=== PATIENT | male | born 1975 | race Two or more races ===

== ENCOUNTER 2024-11-08 10:27 | Inpatient (IN) | payer OTHER ==
[~2024-11-08] VITALS: Ht 172.7 cm; Wt 100.0 kg
--- NOTE | 2024-11-08 10:39 | ECG ---
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
--- NOTE | 2024-11-08 10:41 | ED.PDOC ---
HPI Comments 49 y.o male with PMHx of HTN, TIA, [place], and kidney stones, presents to the ED via EMS for a chief complaint of substernal chest pain radiating to his left arm associated with lightheadedness and generalized weakness that presented 45 minutes ago. Patient describes pain as sharp, constant, rating a 10/10 on the pain scale. EMS reports patient took 4 baby ASA prior to their arrival and administrated 2 NTG on scene, bringing pain level down to a 6/10. Patient en route complained of worsening weakness. EMS reported multiple blood pressure readings that were high such as 202/118, 185/113, and 176/106. Patient denies any nausea, vomiting, abdominal pain, SOB, fever, chills, back pain. He denies any substance or tobacco use. Time Seen by MD: 10:32 Reviewed Notes: Nurses Notes, Subway Operator Notes, Medications, Allergies Allergies: Coded Allergies: NO KNOWN ALLERGIES (Unverified , 11/08/24) Information Source: Patient, Emergency Med Personnel Mode of Arrival: EMS Severity: Moderate Timing: Minutes (45) Duration: Since onset Prehospital treatment: 12 Lead EKG, Accucheck (145), Blacking Wheel Tender, NTG (x2 ) Location: Substernal Radiation: Arm (L) Quality: Sharp Onset: At Rest Cardiac Risk Factors: HTN PE Risk Factors: None History of: Similar pain in past, CA Modifying Factors: Nothing Associated Signs and Symptoms: Other Past Medical History PAST MEDICAL HISTORY: HTN, Kidney Stones, [place], TIA Surgical History (Other): Kdiney stones removal via lithrotripsy and stent placement Family History Family History: Family hx of DM, Family hx of Cancer, Family hx of heart carla, Family hx of HTN Social History Smoker: Non-Smoker Alcohol: Occasionally Drugs: Denies Drug Use Lives In: Home Constitutional: denies: chills, diaphoresis, fatigue, fever, malaise, sweats, weakness, others EENTM: denies: blurred vision, double vision, ear bleeding, ear discharge, ear drainage, ear pain, ear ringing, eye pain, eye redness, hearing loss, mouth pain, mouth swelling, nasal discharge, nose bleeding, nose congestion, nose pain, photophobia, tearing, throat pain, throat swelling, voice changes, others Respiratory: denies: cough, hemoptysis, orthopnea, SOB at rest, shortness of breath, SOB with excertion, stridor, wheezing, others Cardiovascular: reports: chest pain, left arm pain; denies: dizzy spells, diaphoresis, Dyspnea on exertion, edema, irregular heart beat, lightheadedness, palpitations, PND, syncope, others Gastrointestinal: denies: abdomen distended, abdominal pain, blood streaked bowels, constipated, diarrhea, dysphagia, difficulty swallowing, hematemesis, me anna, nausea, poor appetite, poor fluid intake, rectal bleeding, rectal pain, vomiting, others Genitourinary: denies: burning, dysuria, flank pain, frequency, hematuria, incontinence, penile discharge, penile sore, pain, testicle pain, testicle swelling, urgency, others Neurological: denies: dizziness, fainting, headache, left sided numbness, left sided weakness, numbness, paresthesia, pre-existing deficit, right sided numbness, right sided weakness, seizure, speech problems, tingling, tremors, weakness, others Musculoskeletal: denies: back pain, gout, joint pain, joint swelling, muscle pain, muscle stiffness, neck pain, others Integumetry: denies: bruises, change in color, change in hair/nails, dryness, laceration, lesions, lumps, rash, wounds, others Allergic/Immunocompromised: denies: Difficulty Healing, Frequent Infections, Hives, Itching, others Hematologic/Lymphatic: denies: anemia, blood clots, easy bleeding, easy bruising, swollen glands, others Endocrine: denies: excessive hunger, excessive sweating, excessive thirst, excessive urination, flushing, intolerance to cold, intolerance to heat, unexplained weight gain, unexplained weight loss, others Psychiatric: denies: anxiety, bipolar disorder, depression, hopeless, panic disorder, schizophrenia, sleepless, suicidal, others All Other Systems: Reviewed and Negative Physical Exam General Appearance: Moderate Distress HEENT: Normal ENT Inspection, Pharynx Normal, TMs Normal Neck: Full Range of Motion, Non-Tender, Normal, Normal Inspection Respiratory: Chest Non-Tender, Lungs Clear, No Accessory Muscle Use, No Respiratory Distress, Normal Breath Sounds Cardiovascular: No Edema, No JVD, No Murmur, No Gallop, Normal Peripheral Pulses, Regular Rate/Rhythm Breast Exam: Deferred Gastrointestinal: No Organomegaly, Non Tender, No Pulsatile Mass, Normal Bowel Sounds, Soft Genitalia: Deferred Pelvic: Deferred Rectal: Deferred Extremities: No calf tenderness, Normal capillary refill, Normal inspection, Normal range of motion, Non-tender, No pedal edema Musculoskeletal : Apperance: Normal Neurologic: Alert, lead shipper II-XII nml as Tested, No Motor Deficits, Normal Affect, Normal Mood, No Sensory Deficits Cerebellar Function: Normal Reflexes: Normal Skin: Dry, Normal Color, Warm Lymphatic: No Adenopathy EKG EKG : Pulse Rate (adult): 96 [place]: Normal Cardiac Rhythm: NSR Comments ST elevation lateral Was a procedure done? Was a procedure done?: No CP Differential Dx Differential Diagnosis: N/A Differential Diagnosis: HTN Essential, HTN Accelerated Differential Diagnosis: Angina, Chest Wall Pain, Myocardial Infarction, Pericarditis, Pneumonia, Pulmonary Embolus X-Ray, Labs, Meds, VS Vital Signs Date Time Temp Pulse Resp B/P (MAP) Pulse Ox O2 Delivery O2 Flow Rate FiO2 11/08/24 11:38 93 16 169/109 11/08/24 11:30 98.2 93 16 169/109 (129) 93 98.2 11/08/24 11:30 93 16 93 Room Air* 0 21 11/08/24 11:01 94 11/08/24 10:42 92 11/08/24 10:41 96 11/08/24 10:31 96 11/08/24 10:27 98.1 111 18 176/106 (129) 98 Lab Test 11/08/24 13:08 11/08/24 10:45 Range/Units Troponin I High Sensitivity 6 6 </=54 ng/L White Blood Count 7.0 4.4-10.8 10^3/uL Red Blood Count 5.73 4.5-5.90 10^6/uL Hemoglobin 18.0 H 13.5-17.5 g/dL Hematocrit 51.9 41.0-53.0 % Mean Corpuscular Volume 90.5 80.0-100.0 fL Mean Corpuscular Hemoglobin 31.5 28.0-32.0 pg Mean Corpuscular Hemoglobin Concent 34.7 32.0-36.0 g/dL Red Cell Distribution Width 13.2 11.8-14.3 % Platelet Count 247 140-450 10^3/uL Mean Platelet Volume 7.3 6.9-10.8 fL Neutrophils (%) (Auto) 60.4 37.0-80.0 % Lymphocytes (%) (Auto) 29.9 10.0-50.0 % Monocytes (%) (Auto) 8.3 0.0-12.0 % Eosinophils (%) (Auto) 1.0 0.0-7.0 % Basophils (%) (Auto) 0.4 0.0-2.0 % Neutrophils # (Auto) 4.2 1.6-8.6 10 ^3/uL Lymphocytes # (Auto) 2.1 0.4-5.4 10 ^3/uL Monocytes # (Auto) 0.6 0-1.3 10 ^3/uL Eosinophils # (Auto) 0.1 0-0.8 10 ^3/uL Basophils # (Auto) 0 0-0.2 10 ^3/uL Nucleated Red Blood Cells 0.1 % Prothrombin Time 10.3 9.3-11.8 sec Prothrombin Time INR 0.97 0.9-1.15 Activated Partial Thromboplast Time 28.4 24.5-34.5 SEC Sodium Level 139 136-145 mmol/L Potassium Level 3.8 3.5-5.1 mmol/L Chloride Level 105 98-107 mmol/L Carbon Dioxide Level 25 20-31 mmol/L Anion Gap 9 5-15 Blood Urea Nitrogen 12 9-23 mg/dL Creatinine 0.83 0.700-1.30 mg/dL Glomerular Filtration Rate Calc 107 >90 mL/min BUN/Creatinine Ratio 14.5 10.0-20.0 Serum Glucose 112 H 74-106 mg/dL Calcium Level 9.7 8.7-10.4 mg/dL Magnesium Level 1.9 1.6-2.6 mg/dL Total Bilirubin 0.3 0.2-1.0 mg/dL Aspartate Amino Transferase (AST) 30 13-40 U/L Alanine Aminotransferase (ALT) 27 7-40 U/L Alkaline Phosphatase 165 H 46-116 U/L Total Protein 7.5 5.7-8.2 g/dL Albumin 4.6 3.2-4.8 g/dL Current Medications Medications (Trade) Dose Ordered Sig/Eula Route Start Time Stop Time Status Last Admin Morphine Sulfate 4 mg ONCE ONCE IV 11/08/24 10:45 11/08/24 10:46 DC 11/08/24 11:38 Ondansetron HCl (Zofran) 4 mg ONCE ONCE IV 11/08/24 10:45 11/08/24 10:46 DC 11/08/24 11:38 Heparin Sodium (Porcine) 4,000 units ONCE ONCE IV 11/08/24 10:45 11/08/24 10:46 DC 11/08/24 11:37 IV Hep-Lock was established. The CBC is within normal limits. The patient was started having more chest pain so we repeated another EKG which shows sinus rhythm with no ST elevation. The 2nd EKG was sent to Dr. Gruber and he stated that there was no STEMI at this time. We will continue to follow the patient's troponin levels. The patient was given heparin 4000 units IV push per Dr. Gruber to address the ongoing chest pain. The patient was already received nitroglycerin EN route. At this time, the patient was blood pressure remained somewhat elevated The patient was being given morphine 4 mg IV push for the pain and Zofran 4 mg IV push for the nausea The patient was being admitted to the hospitalist. A cardiology consult will be provided by Dr. Yasmani Gruber did come down and evaluate the patient. We did speak with [facility] and they have authorized admission on this patient The authorization #[id number] Images Reviewed?: Images reviewed and evaluated by me Time of 1ST Reevaluation: 10:40 (Spoke with Dr. Gruber at 10:40am who stated to repeat another EKG to determine possible stemi) Reevaluation 1ST: Unchanged Patient Education/Counseling: Diagnosis, Treatment, Prognosis Family Education/Counseling: No Family Present Departure 1 Departure Time of Disposition: 11:13 Impression: Primary Impression: Acute chest pain Additional Impression: Acute myocardial ischemia Disposition: 09 ADMITTED INPATIENT Admit to: [facility] Condition: Fair Critical Care Note Critical Care Time?: Yes (55 min-critical care time only) Stability Stability form required: Yes Unstable for transfer: Telemetry monitoring (Telemetry monitoring required), ED Physician Assesment (Clinical assesment) Heart Score Heart Score: Heart Score Response (Comments) Value History Highly Suspicious 2 EKG Repolarization Disturb 1 Age 45-64 1 Risk Factors >3 or Hx ASHD 2 Troponin Normal limit 0 Total 6 I personally scribed for GERARD WEBB MD ([email or web address]) on 11/08/24 at 10:41. Electronically submitted by Lana Head ([facility]). I personally scribed for GERARD WEBB MD ([email or web address]) on 11/08/24 at 10:43. Electronically submitted by Lana Head ([facility]). I personally scribed for GERARD WEBB MD ([email or web address]) on 11/08/24 at 11:17. Electronically submitted by Lana Head ([facility]). GERARD WEBB MD Nov 08, 2024 10:41
[2024-11-08 10:59] LABS: Eosinophils # (auto) 0.1 10 ^3/uL (0-0.8); Neutrophils # (auto) 4.2 10 ^3/uL (1.6-8.6); Nucleated Red Blood Cells % 0.1 %
[2024-11-08 11:00] LABS: Basophils # (auto) 0 10 ^3/uL (0-0.2)
--- NOTE | 2024-11-08 11:02 | ECG ---
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
[2024-11-08 11:03] LABS: Basophils % (auto) 0.4 % (0.0-2.0); Hematocrit 51.9 % (41.0-53.0); Lymphocytes # (auto) 2.1 10 ^3/uL (0.4-5.4); Lymphocytes % (auto) 29.9 % (10.0-50.0); Mean Corpuscular Hemoglobin 31.5 pg (28.0-32.0); Mean Corpuscular Hgb Conc. 34.7 g/dL (32.0-36.0); Mean Corpuscular Volume 90.5 fL (80.0-100.0); Monocytes # (auto) 0.6 10 ^3/uL (0-1.3); Monocytes % (auto) 8.3 % (0.0-12.0); Neutrophils % (auto) 60.4 % (37.0-80.0); Platelet Count (auto) 247 10^3/uL (140-450); Red Blood Cells 5.73 10^6/uL (4.5-5.90); Red Cell Distribution Width 13.2 % (11.8-14.3)
[2024-11-08 11:22] LABS: INR 0.97 (0.9-1.15); Partial Thromboplastin Time 28.4 SEC (24.5-34.5); Prothrombin Time 10.3 sec (9.3-11.8)
[2024-11-08 11:23] LABS: Alanine Aminotransferase 27 U/L (7-40); Albumin 4.6 g/dL (3.2-4.8); Anion Gap 9 (5-15); Aspartate Aminotransferase 30 U/L (13-40); BUN/Creatinine Ratio 14.5 (10.0-20.0); Bilirubin, Total 0.3 mg/dL (0.2-1.0); Blood Urea Nitrogen 12 mg/dL (9-23); Calcium 9.7 mg/dL (8.7-10.4); Carbon Dioxide 25 mmol/L (20-31); Chloride 105 mmol/L (98-107); Magnesium 1.9 mg/dL (1.6-2.6); Potassium 3.8 mmol/L (3.5-5.1); Sodium 139 mmol/L (136-145); Total Protein 7.5 g/dL (5.7-8.2)
[2024-11-08 11:26] LABS: Alkaline Phosphatase 165 U/L (46-116); Glucose 112 mg/dL (74-106)
[2024-11-08 11:30] VITALS: PULSE 93; RESP 16; O2SAT 93
[2024-11-08] MEDS: HEPARIN SODIUM (PORCINE) 5000 UNITS/ML 1ML VIAL IV ONE (11:37)
[2024-11-08] MEDS: MORPHINE SULFATE 4 MG/ML SYR/VIAL IV ONE ×2 (11:38→20:18)
[2024-11-08] MEDS: ONDANSETRON HCL 4 MG/2 ML VIAL IV ONE ×2 (11:38→20:19)
--- NOTE | 2024-11-08 13:20 | DVHINCON2 ---
Date Seen: Nov 08, 2024 Referring Physician Sanjuana Reason for Consultation Chest pain, EKG abnormality History of Present Illness 49-year-old male with PMH for TIA, [place], HTN and kidney stones presents to the hospital with chest pain. Patient states chest pain is left-sided, sharp and constant in nature, lasting roughly 1/2 hour radiating to left arm, associated with lightheadedness and generalized weakness. Upon EMS presentation patient was given aspirin and 2 nitro on scene which did improve pain. Upon evaluation in the ER patient noted to have significantly elevated blood pressure at 202/118. Patient states his blood pressure is usually controlled he checks it every day and is usually between 130-140. EKG reviewed and shows sinus rhythm at 96 beats per minute, nonspecific ST and T-wave abnormality. Past Medical History HTN, [place], TIA Past Surgical History Denies previous cardiac surgeries Family History Denies pertinent family cardiac history Social History Denies tobacco or illicit drug use, occasional alcohol use Allergies: Coded Allergies: NO KNOWN ALLERGIES (Unverified , 11/08/24) Review of Systems Constitutional: No: Fever, Chills, Sweats, Weakness, Malaise, Other Eyes: No: Pain, Vision change, Conjunctivae inflammation, Eyelid inflammation, Other, Redness ENT: No: Ear pain, Ear discharge, Nose pain, Nose discharge, Nose congestion, Mouth pain, Mouth swelling, Throat pain, Throat swelling, Other Respiratory: No: Cough, Dry, Shortness of breath, SOB with exertion, Wheezing, Hemoptysis, Pleuritic Pain, Sputum, Wheezing, Other Cardiovascular: ; No: Chest Pain Palpitations, Orthopnea, Paroxysmal Noc. Dyspnea, Edema, Lt Headedness, Other Gastrointestinal: No: Nausea, Vomiting, Abdominal Pain, Diarrhea, Constipation, Melena, Hematochezia, Other Genitourinary: No Dysuria, No Frequency, No Incontinence, No Hematuria, No Retention, No Other Musculoskeletal: neck pain; No: other, shoulder pain, arm pain, back pain, hand pain, leg pain, foot pain Skin: No: Rash, Lesions, Jaundice, Bruising, Other Neurological: Other (Dizziness, headache.); No: Weakness, Numbness, Incoordination, Change in speech, Confusion, Seizures Vital Signs Vital Signs Date Time Temp Pulse Resp B/P (MAP) Pulse Ox O2 Delivery O2 Flow Rate FiO2 11/08/24 11:38 93 16 169/109 11/08/24 11:30 98.2 93 98.2 11/08/24 11:30 Room Air* 0 21 Physical Exam General appearance: Patient is well-developed, well-nourished, in no acute distress. HEENT: Exam shows: Normocephalic, atraumatic, PERRLA, EOMI Neck: Supple, no bruits Chest: Equal chest excursion bilaterally. Breath sounds normal-no rales or wheezes. Heart: Rhythm: Regular rate; no murmur or gallop Abdomen: Exam shows: Soft, nontender, nondistended Musculoskeletal: No clubbing, no cyanosis, no lower extremity edema Dermatology: Skin warm, moist. Neurological: Exam shows: Alert and oriented x4, normal speech Available prior records, labs, EKG, rhythm strips reviewed and interpreted Labs/Diagnostic Data Labs Test 11/08/24 10:45 Range/Units White Blood Count 7.0 4.4-10.8 10^3/uL Red Blood Count 5.73 4.5-5.90 10^6/uL Hemoglobin 18.0 H 13.5-17.5 g/dL Hematocrit 51.9 41.0-53.0 % Mean Corpuscular Volume 90.5 80.0-100.0 fL Mean Corpuscular Hemoglobin 31.5 28.0-32.0 pg Mean Corpuscular Hemoglobin Concent 34.7 32.0-36.0 g/dL Red Cell Distribution Width 13.2 11.8-14.3 % Platelet Count 247 140-450 10^3/uL Mean Platelet Volume 7.3 6.9-10.8 fL Neutrophils (%) (Auto) 60.4 37.0-80.0 % Lymphocytes (%) (Auto) 29.9 10.0-50.0 % Monocytes (%) (Auto) 8.3 0.0-12.0 % Eosinophils (%) (Auto) 1.0 0.0-7.0 % Basophils (%) (Auto) 0.4 0.0-2.0 % Neutrophils # (Auto) 4.2 1.6-8.6 10 ^3/uL Lymphocytes # (Auto) 2.1 0.4-5.4 10 ^3/uL Monocytes # (Auto) 0.6 0-1.3 10 ^3/uL Eosinophils # (Auto) 0.1 0-0.8 10 ^3/uL Basophils # (Auto) 0 0-0.2 10 ^3/uL Nucleated Red Blood Cells 0.1 % Prothrombin Time 10.3 9.3-11.8 sec Prothrombin Time INR 0.97 0.9-1.15 Activated Partial Thromboplast Time 28.4 24.5-34.5 SEC Sodium Level 139 136-145 mmol/L Potassium Level 3.8 3.5-5.1 mmol/L Chloride Level 105 98-107 mmol/L Carbon Dioxide Level 25 20-31 mmol/L Anion Gap 9 5-15 Blood Urea Nitrogen 12 9-23 mg/dL Creatinine 0.83 0.700-1.30 mg/dL Glomerular Filtration Rate Calc 107 >90 mL/min BUN/Creatinine Ratio 14.5 10.0-20.0 Serum Glucose 112 H 74-106 mg/dL Calcium Level 9.7 8.7-10.4 mg/dL Magnesium Level 1.9 1.6-2.6 mg/dL Total Bilirubin 0.3 0.2-1.0 mg/dL Aspartate Amino Transferase (AST) 30 13-40 U/L Alanine Aminotransferase (ALT) 27 7-40 U/L Alkaline Phosphatase 165 H 46-116 U/L Troponin I High Sensitivity 6 </=54 ng/L Total Protein 7.5 5.7-8.2 g/dL Albumin 4.6 3.2-4.8 g/dL Assessment * Chest pain - troponin negative, continue trending. EKG with lateral ST and T- wave abnormality. Follow up echo. Patient undergo adenosine stress test in a.m.. NPO after midnight. * Hypertensive urgency, uncontrolled HTN - continue home regimen. Continue trending. IV p.r.n. as needed. Case Discussed with Dr Gruber. Initial troponin negative,continue trending troponins. Follow up echo. Questionable STEMI on EKG though after review noted not to be STEMI. Patient undergo adenosine stress test in a.m.. NPO after midnight. Critical care, time spent: 40 minutes This medical document was created using an electronic medical record system with voice recognition software and computerized dictation system. Although this document has been carefully reviewed, there might still be some phonetic and typographical errors. Occasional wrong-word or ``sound-alike substitutions may have occurred due to the inherent limitations of voice recognition software. These areas are purely typographical due to imperfections of the software programs and do not reflect any compromise in the patient's medical care. Please read the chart carefully and recognize, using context, where these substitutions have occurred. Thank you for allowing me to participate in the management of this patient. The treatment plan was discussed with and agreed upon by patient/family including requesting consultants and ordering of imaging/procedures. Plan discussed with: Patient NYHA Physical activity limitations: NA Date of Service: Nov 08, 2024 Billing Provider: AYLA PALOMARES Cardiology Common Codes: 28063-WXNROSA INP/OBS CARE (High), 99240-OXWDRZEI CARE 30-74 MIN AYLA PALOMARES Nov 08, 2024 13:20
--- NOTE | 2024-11-08 13:42 | DVH ---
CHEST RADIOGRAPH Indication: CP Technique: Single frontal view of the chest was obtained Comparison: None FINDINGS: Lines and Tubes: None Lungs: No focal consolidation. Pleura: No effusion. No pneumothorax. Cardiomediastinal contours: Unremarkable Bones: No acute osseous abnormality. IMPRESSION: 1. No acute cardiopulmonary disease.
--- NOTE | 2024-11-08 14:40 | ECG ---
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
[2024-11-08] MEDS: ADENOSINE 80 MG in GIVE UN-DILUTED 0 ML IV ONE (16:44)
[2024-11-08] MEDS ORDERED: ONDANSETRON HCL 4 MG/2 ML VIAL IV PRN (19:30)
[2024-11-08] MEDS ORDERED: MORPHINE SULFATE INJ 2 MG/ml SYRG IV PRN (19:30)
[2024-11-08] MEDS ORDERED: TEMAZEPAM 15 MG CAP PO PRN (19:30)
[2024-11-08 20:00] VITALS: PULSE 90; RESP 14; O2SAT 97
[2024-11-08] MEDS: METOPROLOL TARTRATE 25 MG TAB PO ONE (20:01)
[2024-11-08] MEDS: NITROGLYCERIN 0.4 MG SL TAB SL PRN (20:02)
[2024-11-08] MEDS: ATORVASTATIN 20 MG TAB PO SCH (22:00)
--- NOTE | 2024-11-08 22:03 | DVHINCON2 ---
Date Seen: Nov 08, 2024 Referring Physician Sanjuana Reason for Consultation Chest pain, EKG abnormality History of Present Illness This is a 49-year-old male with PMH of TIA, [place], HTN and kidney stones presented to the ED with chest pain. Patient states chest pain is left-sided, sharp and constant in nature, lasting roughly 1/2 hour radiating to left arm, associated with lightheadedness and generalized weakness. Upon EMS presentation patient was given aspirin and 2 nitro on scene which did improve pain. Upon evaluation in the ED patient noted to have significantly elevated blood pressure at 202/118. Patient states his blood pressure is usually controlled he checks it every day and is usually between 130-140. EKG reviewed and shows sinus rhythm at 96 beats per minute, nonspecific ST and T-wave abnormality. Chest x-ray showed NAD. Patient was admitted to the hospital. I am asked to consult on this patient. Past Medical History HTN, [place], TIA Past Surgical History Denies previous cardiac surgeries Allergies: Coded Allergies: NO KNOWN ALLERGIES (Unverified , 11/08/24) Review of Systems Constitutional: No: Fever, Chills, Sweats, Weakness, Malaise, Other Eyes: No: Pain, Vision change, Conjunctivae inflammation, Eyelid inflammation, Other, Redness ENT: No: Ear pain, Ear discharge, Nose pain, Nose discharge, Nose congestion, Mouth pain, Mouth swelling, Throat pain, Throat swelling, Other Respiratory: No: Cough, Dry, Shortness of breath, SOB with exertion, Wheezing, Hemoptysis, Pleuritic Pain, Sputum, Wheezing, Other Cardiovascular: ; No: Chest Pain Palpitations, Orthopnea, Paroxysmal Noc. Dyspnea, Edema, Lt Headedness, Other Gastrointestinal: No: Nausea, Vomiting, Abdominal Pain, Diarrhea, Constipation, Melena, Hematochezia, Other Genitourinary: No Dysuria, No Frequency, No Incontinence, No Hematuria, No Retention, No Other Musculoskeletal: neck pain; No: other, shoulder pain, arm pain, back pain, hand pain, leg pain, foot pain Skin: No: Rash, Lesions, Jaundice, Bruising, Other Neurological: Other (Dizziness, headache.); No: Weakness, Numbness, Incoordination, Change in speech, Confusion, Seizures Vital Signs Vital Signs Date Time Temp Pulse Resp B/P (MAP) Pulse Ox O2 Delivery O2 Flow Rate FiO2 11/08/24 16:30 97.8 90 16 158/106 (123) 97 97.8 11/08/24 11:30 Room Air* 0 21 Physical Exam GENERAL: Awake, alert, oriented. LUNGS: Clear. CARDIOVASCULAR: Heart sounds are good. ABDOMEN: Soft. Labs/Diagnostic Data Labs Test 11/08/24 13:08 11/08/24 10:45 Range/Units Troponin I High Sensitivity 6 </=54 ng/L White Blood Count 7.0 4.4-10.8 10^3/uL Red Blood Count 5.73 4.5-5.90 10^6/uL Hemoglobin 18.0 H 13.5-17.5 g/dL Hematocrit 51.9 41.0-53.0 % Mean Corpuscular Volume 90.5 80.0-100.0 fL Mean Corpuscular Hemoglobin 31.5 28.0-32.0 pg Mean Corpuscular Hemoglobin Concent 34.7 32.0-36.0 g/dL Red Cell Distribution Width 13.2 11.8-14.3 % Platelet Count 247 140-450 10^3/uL Mean Platelet Volume 7.3 6.9-10.8 fL Neutrophils (%) (Auto) 60.4 37.0-80.0 % Lymphocytes (%) (Auto) 29.9 10.0-50.0 % Monocytes (%) (Auto) 8.3 0.0-12.0 % Eosinophils (%) (Auto) 1.0 0.0-7.0 % Basophils (%) (Auto) 0.4 0.0-2.0 % Neutrophils # (Auto) 4.2 1.6-8.6 10 ^3/uL Lymphocytes # (Auto) 2.1 0.4-5.4 10 ^3/uL Monocytes # (Auto) 0.6 0-1.3 10 ^3/uL Eosinophils # (Auto) 0.1 0-0.8 10 ^3/uL Basophils # (Auto) 0 0-0.2 10 ^3/uL Nucleated Red Blood Cells 0.1 % Prothrombin Time 10.3 9.3-11.8 sec Prothrombin Time INR 0.97 0.9-1.15 Activated Partial Thromboplast Time 28.4 24.5-34.5 SEC Sodium Level 139 136-145 mmol/L Potassium Level 3.8 3.5-5.1 mmol/L Chloride Level 105 98-107 mmol/L Carbon Dioxide Level 25 20-31 mmol/L Anion Gap 9 5-15 Blood Urea Nitrogen 12 9-23 mg/dL Creatinine 0.83 0.700-1.30 mg/dL Glomerular Filtration Rate Calc 107 >90 mL/min BUN/Creatinine Ratio 14.5 10.0-20.0 Serum Glucose 112 H 74-106 mg/dL Calcium Level 9.7 8.7-10.4 mg/dL Magnesium Level 1.9 1.6-2.6 mg/dL Total Bilirubin 0.3 0.2-1.0 mg/dL Aspartate Amino Transferase (AST) 30 13-40 U/L Alanine Aminotransferase (ALT) 27 7-40 U/L Alkaline Phosphatase 165 H 46-116 U/L Total Protein 7.5 5.7-8.2 g/dL Albumin 4.6 3.2-4.8 g/dL Assessment Chest pain. Hypertensive urgency. Plan/Recommendation I agree with your ongoing assessment and care of plan. Patient has been seen by Heath Kebede NP on my behalf, him and I discussed the plan with the patient. Trend troponin. Echocardiogram. Adenosine stress test in a.m.. NPO after midnight. Trend blood pressure. Continue home medications. Additional plan as per the hospital course. Plan discussed with: Patient NYHA Physical activity limitations: NA Date of Service: Nov 08, 2024 Billing Provider: PATI PARSONS MD Cardiology Common Codes: 74251-[id number] INP/OBS CARE (High), [id number]-[id number] CARE 30-74 MIN PATI PARSONS MD Nov 08, 2024 17:49
[2024-11-09] VITALS (10 sets, daily range): BP systolic 129–161; BP diastolic 74–99; PULSE 65–86; RESP 14–19; TEMP 97.1–98.7; O2SAT 95–99
--- NOTE | 2024-11-09 05:19 | DVHHP2 ---
History of Present Illness Reason for Visit: Chest pain History of Present Illness 49-year-old male presents for evaluation of chest pain. Patient reports left- sided sharp chest pain that was radiating to his left arm mild shortness for breath. Denies nausea or vomiting. Patient was also noted to be hypertensive in the 170s on arrival. Denies headache or blurred vision. No other acute complaints reported. Past Medical History Hypertension, TIA,? OR Past Surgical History Lithotripsy with stent Family History Diabetes mellitus, cancer, heart disease Smoke: No ALCOHOL: occassional Drugs: None Lives: with Family Review of Systems Review of Systems Review of systems are currently negative otherwise addressed in HPI. Allergies: Coded Allergies: NO KNOWN ALLERGIES (Unverified , 11/08/24) Medications Current Medications Medications Dose Ordered Sig/Eula Route Start Time Stop Time Status Last Admin Dose Admin Aspirin 81 mg DAILY PO 11/09/24 10:00 Atorvastatin Calcium 10 mg HS PO 11/08/24 22:00 Temazepam 15 mg QHSP PRN PO 11/08/24 19:30 Ondansetron HCl 4 mg Q4HP PRN IV 11/08/24 19:30 Nitroglycerin 0.4 mg Q5MINP PRN SL 11/08/24 19:30 11/08/24 20:02 0.4 MG Morphine Sulfate 2 mg Q30M PRN IV 11/08/24 19:30 Exam Vital Signs Vital Signs Date Time Temp Pulse Resp B/P (MAP) Pulse Ox O2 Delivery O2 Flow Rate FiO2 11/09/24 01:30 97.1 65 18 143/90 (107) 95 97.1 11/08/24 20:00 Room Air* 0 21 Exam Gen: 49-year-old male in mild distress Skin: Warm, dry, normal color and texture, no rash. HEENT: Normocephalic atraumatic, mucous membranes moist and pink. Neck: Cervical and supraclavicular nodes normal without enlargement, trachea is midline, thyroid gland is normal without masses. Pulmonary: Clear to auscultation and percussion bilaterally. Cardiac: Regular rate and rhythm. No murmur Abdomen: Soft, nontender, nondistended, bowel sounds present all 4 quadrants, no guarding, no rigidity, no organomegaly. Extremities: No cyanosis, clubbing, no edema Neuro: Cranial nerves II through XII grossly intact, normal affect and speech, no focal motor deficits. Labs/Xrays ORDERING PHYSICIAN: GERARD WEBB MD PROCEDURE(s): CXRP - CHEST PORTABLE REASON: CP ORDER NUMBER(s): [id number], ACCESSION NUMBER(s): [id number] CHEST RADIOGRAPH Indication: CP Technique: Single frontal view of the chest was obtained Comparison: None FINDINGS: Lines and Tubes: None Lungs: No focal consolidation. Pleura: No effusion. No pneumothorax. Cardiomediastinal contours: Unremarkable Bones: No acute osseous abnormality. IMPRESSION: 1. No acute cardiopulmonary disease. Labs Test 11/08/24 13:08 11/08/24 10:45 Range/Units Troponin I High Sensitivity 6 </=54 ng/L White Blood Count 7.0 4.4-10.8 10^3/uL Red Blood Count 5.73 4.5-5.90 10^6/uL Hemoglobin 18.0 H 13.5-17.5 g/dL Hematocrit 51.9 41.0-53.0 % Mean Corpuscular Volume 90.5 80.0-100.0 fL Mean Corpuscular Hemoglobin 31.5 28.0-32.0 pg Mean Corpuscular Hemoglobin Concent 34.7 32.0-36.0 g/dL Red Cell Distribution Width 13.2 11.8-14.3 % Platelet Count 247 140-450 10^3/uL Mean Platelet Volume 7.3 6.9-10.8 fL Neutrophils (%) (Auto) 60.4 37.0-80.0 % Lymphocytes (%) (Auto) 29.9 10.0-50.0 % Monocytes (%) (Auto) 8.3 0.0-12.0 % Eosinophils (%) (Auto) 1.0 0.0-7.0 % Basophils (%) (Auto) 0.4 0.0-2.0 % Neutrophils # (Auto) 4.2 1.6-8.6 10 ^3/uL Lymphocytes # (Auto) 2.1 0.4-5.4 10 ^3/uL Monocytes # (Auto) 0.6 0-1.3 10 ^3/uL Eosinophils # (Auto) 0.1 0-0.8 10 ^3/uL Basophils # (Auto) 0 0-0.2 10 ^3/uL Nucleated Red Blood Cells 0.1 % Prothrombin Time 10.3 9.3-11.8 sec Prothrombin Time INR 0.97 0.9-1.15 Activated Partial Thromboplast Time 28.4 24.5-34.5 SEC Sodium Level 139 136-145 mmol/L Potassium Level 3.8 3.5-5.1 mmol/L Chloride Level 105 98-107 mmol/L Carbon Dioxide Level 25 20-31 mmol/L Anion Gap 9 5-15 Blood Urea Nitrogen 12 9-23 mg/dL Creatinine 0.83 0.700-1.30 mg/dL Glomerular Filtration Rate Calc 107 >90 mL/min BUN/Creatinine Ratio 14.5 10.0-20.0 Serum Glucose 112 H 74-106 mg/dL Calcium Level 9.7 8.7-10.4 mg/dL Magnesium Level 1.9 1.6-2.6 mg/dL Total Bilirubin 0.3 0.2-1.0 mg/dL Aspartate Amino Transferase (AST) 30 13-40 U/L Alanine Aminotransferase (ALT) 27 7-40 U/L Alkaline Phosphatase 165 H 46-116 U/L Total Protein 7.5 5.7-8.2 g/dL Albumin 4.6 3.2-4.8 g/dL Assessment/Plan Assessment/Plan Assessment Chest pain rule out ACS Accelerated hypertension History of OR Plan Cardiology consultation NPO after midnight ACS protocol Continue treatment per orders. Plan discussed with: Patient My Orders Orders - RACHEL ROE AGACNRamo Procedure Category Date Status Time Npo After Midnight DIET 11/09/24 Transmitted Breakfast Aspirin Tablet PHA 11/09/24 In Process 10:00 Atorvastatin (Lipitor) PHA 11/08/24 In Process 22:00 Basic Metabolic Panel LAB 11/09/24 Logged 04:00 Admit ADMIT 11/08/24 Transmitted 19:18 Temazepam (Restoril) PHA 11/08/24 In Process 19:30 Ondansetron Hcl PHA 11/08/24 In Process (Zofran) 19:30 Condition: Fair EUGENE 11/08/24 In Process 19:18 Bedrest With Bathroom EUGENE 11/08/24 In Process Privileg 19:18 Nitroglycerin PHA 11/08/24 In Process Sublingual (Ntrostat 19:30 Morphine Sulfate PHA 11/08/24 In Process Injection 19:30 Stat Ekg For Chest EUGENE 11/08/24 In Process Pain 19:18 Notify Md Of Changes EUGENE 11/08/24 In Process From Base 19:18 Salesforce Trainer For BANNER 11/08/24 In Process 24 Hours 19:18 Emergency Dysrhythmia BANNER 11/08/24 In Process Protocol 19:18 Rhythm Strips Once BANNER 11/08/24 In Process Every Shift 19:18 Oxygen By Nasal RT 11/08/24 Transmitted Cannula 19:18 Date of Service: Nov 08, 2024 Billing Provider: RACHEL ROE Common Visit Codes: [id number] INP/OBS CARE (HIGH) RACHEL ROE Nov 09, 2024 05:19
[2024-11-09 06:55] LABS: Potassium 3.6 mmol/L (3.5-5.1); Sodium 141 mmol/L (136-145)
[2024-11-09 06:56] LABS: Anion Gap 8 (5-15); Calcium 9.4 mg/dL (8.7-10.4); Carbon Dioxide 26 mmol/L (20-31)
[2024-11-09 07:01] LABS: BUN/Creatinine Ratio 13.7 (10.0-20.0); Blood Urea Nitrogen 13 mg/dL (9-23); Glucose 101 mg/dL (74-106)
[2024-11-09 07:03] LABS: Chloride 107 mmol/L (98-107); Cholesterol 229 mg/dL (< 200); HDL Cholesterol 42 mg/dL (40-59); LDL Cholesterol 177 mg/dL (< 100); Triglycerides 189 mg/dL (< 150)
--- NOTE | 2024-11-09 07:13 | ECG ---
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
[2024-11-09] MEDS: ASPirin 81 mg TAB PO SCH (09:35)
--- NOTE | 2024-11-09 10:29 | DVHCARD ---
Cardiology Stress Test [place] Treadmill Stress Test [place] Referring MD: VIVIANA Kebede Protocol: Gil (without cardiolite) Reason for referral: Chest Pain Target heart Rate:@85%: 144 Percent MPHR: 170 METS: 10.10 Resting Heart rate: 80 Resting Blood Pressure: 161/91 Exercise Heart Rate: 157 Exercise Blood Pressure: 165/90 Baseline EKG: Normal sinus rhythm Stress EKG: Sinus tachycardia Functional Capacity: Good Normal Heart Rate Response: Adequate Blood Pressure Response: Hypertensive Clinical response: Non-ischemic Arrhythmia?: No Cardiolite Injected?: No ST-T Changes: Non/Minimal Probability of Inducible Ische: Low Date of Service: Nov 09, 2024 Billing Provider: JUSTIN BURKETT Cardiology Common Codes: PROCEDURE ONLY Treadmill w/o Cardiolite: [id number], INTERP, RPT JUSTIN BURKETT Nov 09, 2024 10:29
[2024-11-09] MEDS ORDERED: METO25TA93 PO (11:47)
[2024-11-09] MEDS ORDERED: LOSA-534 PO (11:47)
--- NOTE | 2024-11-09 12:27 | DVHSR ---
APPROVED REPORT EXAM: Two-dimensional and M-mode echocardiogram with Doppler and color Doppler. Blood Pressure: 137/82 mmHg INDICATION LV assessment RISK FACTORS Height: 5'8", Weight: 209 DIMENSIONS LVDd4.8 (3.8-5.7cm)LA (2D)3.2 (1.9-4.0cm)Aortic Root3.2 (2.0-3.7cm) LVDs3.5 (2.5-4.0cm)LA (MM) (1.9-4.0cm)Aortic Cusp Exc1.8 (1.5-2.0cm) EF (%) 54.0 (55-70%)Rt. Atrium3.6 (1.9-4.0cm)Asc. Aorta3.3 cm IVSd1.0 (0.7-1.1cm)RV (D)3.4 (1.8-2.4cm) PWd1.0 (0.7-1.1cm) Mitral Valve MitralMitral Stenosis E wave0.70m/sMV Mean GR.mmHg A wave0.53m/sMV Peak GR.mmHg E/A ratio1.32D MVAcm2 DECEL [id number] 1/2 Timems Aortic Valve Aortic ValveAortic Stenosis V10.90m/Bhupendra Mean GR.3mmHg V21.07m/Bhupendra Peak GR.5mmHg LVOT Diameter2.3 (1.8-2.4cm)Doppler AVA3.49cm2 Pulmonic Valve V21.06m/s Tricuspid Valve TR Velocity2.29m/s [id number] Conclusion lvef 45-50% by visual estimate mild anteroseptal hypokinesis Wall motion abnormality mild LVH normal rv function no severe valve abnormalities noted
--- NOTE | 2024-11-09 13:49 | DVHPN2 ---
Progress Note Date Seen: Nov 09, 2024 Medical Necessity Reason Pt with a Central, PICC or Fol: No Subjective Patient reports: No new complaints Review of Systems: HEENT:Normal, CVS:Normal, RESPIRATORY:Normal, GI:Normal, :Normal, MSK:Normal, NEURO:Normal Objective vital signs Vital Sign Date Time Temp Pulse Resp B/P (MAP) Pulse Ox O2 Delivery O2 Flow Rate FiO2 11/09/24 13:28 97.6 68 16 148/99 (115) 96 97.6 11/09/24 11:26 Room Air* 0 21 medications Current Medications Medications Dose Ordered Sig/Eula Route Start Time Stop Time Status Last Admin Dose Admin Aspirin 81 mg DAILY PO 11/09/24 10:00 11/09/24 09:35 81 MG Atorvastatin Calcium 10 mg HS PO 11/08/24 22:00 Temazepam 15 mg QHSP PRN PO 11/08/24 19:30 Ondansetron HCl 4 mg Q4HP PRN IV 11/08/24 19:30 Nitroglycerin 0.4 mg Q5MINP PRN SL 11/08/24 19:30 11/08/24 20:02 0.4 MG Morphine Sulfate 2 mg Q30M PRN IV 11/08/24 19:30 Examination: GENERAL:Normal, HEENT:Normal, NECK:Normal, LUNGS:Normal, CVS:Normal, ABDOMEN:Normal, MSK:Normal, SKIN:Normal, NEURO:Normal, :Normal laboratory and microbiology Laboratory Tests 11/09/24 06:12 11/08/24 10:45 Test 11/09/24 06:12 Range/Units Serum Glucose 101 74-106 mg/dL Problem List/Assessment/Plan Problem List/Assessment/Plan #1 chest pain ?cad: stress test #2 hypertensive urgency: cont meds #3 hyperlipidemia: lipitor #4 h/o renal stones #5 obesity advance care planning- full code- time spent 19 mins Plan discussed with: Patient My Orders My Orders Orders - RACHEL MCELROY MD Procedure Category Date Status Time Cardiac DIET 11/09/24 Transmitted Diet-2gna,Lofat,Lochol Lunch Atorvastatin (Lipitor) PHA 11/09/24 Verified 22:00 Losartan Tablet PHA 11/10/24 Verified (Cozaar Tablet) 10:00 Urinalysis LAB 2/10/25 Uncollected 13:39 Date of Service: Nov 09, 2024 Billing Provider: RACHEL MCELROY MD Common Visit Codes: [id number] INP/OBS CARE(HIGH) Secondary Visit Codes: [id number] CARE PLAN 30 MINUTES RACHEL MCELROY MD Nov 09, 2024 13:49
[2024-11-09 17:13] LABS: Urine Bacteria None Seen /hpf (None Seen)
[2024-11-09 17:28] LABS: Urine Amorphous Crystal FEW /hpf (None Seen); Urine Blood Negative /uL (Negative); Urine Budding Yeast OCCASIONAL /hpf (None Seen); Urine Clarity Turbid (Clear); Urine Color Light-Yellow (Yellow); Urine Mucus FEW (None Seen); Urine Protein, UAD TRACE (Negative); Urine Specific Gravity 1.017 (1.001-1.035); Urine Sperm PRESENT /hpf (None Seen); Urine Squamous Epithelial Cell None Seen /hpf (<5); Urine Urobilinogen Normal (Negative); Urine WBC < 1 /HPF (0-3)
--- NOTE | 2024-11-09 21:19 | DVHPN2 ---
Progress Note - Dictate Date Seen: Nov 09, 2024 Medical Necessity Reason Pt with a Central, PICC or Fol: No Subjective Patient was seen and evaluated in follow up. Chest pain improved. Echocardiogram is pending. Treadmill stress test was non-ischemic. BP improved today. Trig 189, Chol 229, LDL 177. HDL is 42. vital signs Vital Sign Date Time Temp Pulse Resp B/P (MAP) Pulse Ox O2 Delivery O2 Flow Rate FiO2 11/09/24 20:50 97.8 86 19 129/90 (103) 97 97.8 11/09/24 14:56 21 11/09/24 11:26 Room Air* 0 medications Current Medications Medications Dose Ordered Sig/Eula Route Start Time Stop Time Status Last Admin Dose Admin Aspirin 81 mg DAILY PO 11/09/24 10:00 11/09/24 09:35 81 MG Temazepam 15 mg QHSP PRN PO 11/08/24 19:30 Ondansetron HCl 4 mg Q4HP PRN IV 11/08/24 19:30 Nitroglycerin 0.4 mg Q5MINP PRN SL 11/08/24 19:30 11/09/24 14:24 0.4 MG Morphine Sulfate 2 mg Q30M PRN IV 11/08/24 19:30 Atorvastatin Calcium 40 mg HS PO 11/09/24 22:00 Losartan Potassium 50 mg DAILY PO 11/10/24 10:00 laboratory and microbiology Laboratory Tests 11/09/24 06:12 11/08/24 10:45 Test 11/09/24 06:12 Range/Units Serum Glucose 101 74-106 mg/dL Problem List Chest pain. Hypertensive urgency. Assessment/Plan Continued all current supportive medical care. Aspirin, Lipitor. Losartan. Morphine for pain management. Additional plan as per the hospital course. Plan discussed with: Patient PATI PARSONS MD Nov 09, 2024 21:19
[2024-11-09] MEDS: ATORVASTATIN 20 MG TAB PO SCH (22:05)
[2024-11-10] VITALS (10 sets, daily range): BP systolic 145–150; BP diastolic 89–93; PULSE 69–84; RESP 16–17; TEMP 36.7; O2SAT 96–99
[2024-11-10] MEDS: LOSARTAN POTASSIUM 50 MG TAB PO SCH (10:00)
--- NOTE | 2024-11-10 10:24 | ECG ---
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
[2024-11-10] MEDS ORDERED: ATOR-507 PO (12:32)
--- NOTE | 2024-11-10 12:59 | DVHDS2 ---
Discharge Summary Date of Admission Nov 08, 2024 at 19:18 Date of Discharge: Nov 10, 2024 Labs/Diagnostic Data: Laboratory Results Test 11/09/24 14:45 11/09/24 06:12 11/08/24 13:08 11/08/24 10:45 Urine Color Light-yellow (Yellow) Urine Clarity Turbid (Clear) Urine pH 7.0 (5.0-9.0) Urine Specific [place] 1.017 (1.001-1.035) Urine Protein Trace (Negative) Urine Ketones Negative (Negative) Urine Blood Negative /uL (Negative) Urine Nitrite Negative (Negative) Urine Bilirubin Negative (Negative) Urine Urobilinogen Normal mg/dL (Negative) Urine Leukocyte Esterase Negative /uL (Negative) Urine RBC 1 /hpf (0 - 3) Urine Microscopic WBC < 1 /HPF (0-3) Urine Squamous Epithelial Cells None seen /hpf (<5) Urine Amorphous Crystals Few /hpf (None Seen) Urine Bacteria None seen /hpf (None Seen) Urine Mucus Few (None Seen) Urine Yeast (Budding) Occasional /hpf (None Urine Sperm Present /hpf (None Seen) Urine Glucose Normal mg/dL (Normal) Sodium Level 141 mmol/L (136-145) Potassium Level 3.6 mmol/L (3.5-5.1) Chloride Level 107 mmol/L (98-107) Carbon Dioxide Level 26 mmol/L (20-31) Anion Gap 8 (5-15) Blood Urea Nitrogen 13 mg/dL (9-23) Creatinine 0.95 mg/dL (0.700-1.30) Glomerular Filtration Rate Calc 98 mL/min (>90) BUN/Creatinine Ratio 13.7 (10.0-20.0) Serum Glucose 101 mg/dL (74-106) Calcium Level 9.4 mg/dL (8.7-10.4) Triglycerides Level 189 mg/dL (< 150) Cholesterol Level 229 mg/dL (< 200) LDL Cholesterol 177 mg/dL (< 100) HDL Cholesterol 42 mg/dL (40-59) Troponin I High Sensitivity 6 ng/L (</=54) White Blood Count 7.0 10^3/uL (4.4-10.8) Red Blood Count 5.73 10^6/uL (4.5-5.90) Hemoglobin 18.0 g/dL (13.5-17.5) Hematocrit 51.9 % (41.0-53.0) Mean Corpuscular Volume 90.5 fL (80.0-100.0) Mean Corpuscular Hemoglobin 31.5 pg (28.0-32.0) Mean Corpuscular Hemoglobin Concent 34.7 g/dL (32.0-36.0) Red Cell Distribution Width 13.2 % (11.8-14.3) Platelet Count 247 10^3/uL (140-450) Mean Platelet Volume 7.3 fL (6.9-10.8) Neutrophils (%) (Auto) 60.4 % (37.0-80.0) Lymphocytes (%) (Auto) 29.9 % (10.0-50.0) Monocytes (%) (Auto) 8.3 % (0.0-12.0) Eosinophils (%) (Auto) 1.0 % (0.0-7.0) Basophils (%) (Auto) 0.4 % (0.0-2.0) Neutrophils # (Auto) 4.2 10 ^3/uL (1.6-8.6) Lymphocytes # (Auto) 2.1 10 ^3/uL (0.4-5.4) Monocytes # (Auto) 0.6 10 ^3/uL (0-1.3) Eosinophils # (Auto) 0.1 10 ^3/uL (0-0.8) Basophils # (Auto) 0 10 ^3/uL (0-0.2) Nucleated Red Blood Cells 0.1 % Prothrombin Time 10.3 sec (9.3-11.8) Prothrombin Time INR 0.97 (0.9-1.15) Activated Partial Thromboplast Time 28.4 SEC (24.5-34.5) Magnesium Level 1.9 mg/dL (1.6-2.6) Total Bilirubin 0.3 mg/dL (0.2-1.0) Aspartate Amino Transferase (AST) 30 U/L (13-40) Alanine Aminotransferase (ALT) 27 U/L (7-40) Alkaline Phosphatase 165 U/L (46-116) Total Protein 7.5 g/dL (5.7-8.2) Albumin 4.6 g/dL (3.2-4.8) Other Laboratory Tests 11/09/24 06:12 11/08/24 10:45 Brief Hx & Hospital Course: see dictated note Condition at Discharge: Good Final Diagnosis/Problems List HTN Discharge Disposition: Home Discharge Instruct/Medications Diet: Cardiac 2g Na,low cholest Activity: No Restrictions, As Tolerated Follow Up/Referral: FU WITH [facility] Medications: RESUME HOME MEDS SCRIPT TO PHARMACY Discharge Statement: "Patient was advised to return to the ER or call 911 if any headaches, dizziness, shortness of breath, chest pain, abdominal pain, bleeding, fevers, or worsening of medical condition. Patient was counseled about treatment plan, medications, possible side effects, patientverbalized understanding. All questions were answered to the best of my ability. This discharge took greater then 30 minutes in planning, reviewing documentation, counseling the patient, and discussing with other team members." ASSESSMENT ASSESSMENT Assessment HTN Date of Service: Nov 10, 2024 Billing Provider: RACHEL MCELROY MD Common Visit Codes: [id number]-ONJ/OBS DISCH DAY >30min RACHEL MCELROY MD Nov 10, 2024 12:59
--- NOTE | 2024-11-10 14:09 | DVHDS ---
HISTORY OF PRESENT ILLNESS: The patient is a 49-year-old gentleman, who was admitted with complaints of chest pain and mild shortness of breath, history of hypertension. The patient's blood pressure was elevated at 176/106 at the time of admission. HOSPITAL COURSE: The patient had a chest x-ray that showed no acute disease. The patient was seen in cardiology consult by Dr. Gruber. The patient underwent a treadmill stress test that was nonischemic. Echocardiogram, however, showed ejection fraction of 45%-50% with mild anteroseptal hypokinesis. The patient's lipid panel was elevated with LDL of 177. The patient will now be discharged home to resume his home medications as well as to be on Lipitor 40 mg at bedtime. The patient will monitor his blood pressure at home. FINAL DIAGNOSES: * Chest pain with questionable coronary artery disease. Stress test was negative. * Hypertensive urgency. * Hyperlipidemia. * Obesity. * Obstructive sleep apnea. * History of renal stones. Time spent in discharge planning and review of plan with the patient and nursing was 38 minutes. MD CRISTHIAN Edwards/THELMA/AMI TID: [id number] RECEIPT: [id number]
--- NOTE | 2024-11-10 16:20 | DVHPN2 ---
Progress Note - Dictate Date Seen: Nov 10, 2024 Medical Necessity Reason Pt with a Central, PICC or Fol: No Subjective Patient was seen and evaluated in follow up. No overnight events. Echocardiogram shows an EF of 45-50%. Patient denies any cardiac symptoms. Patient is cardiac stable for discharge. Telemetry reviewed. vital signs Vital Sign Date Time Temp Pulse Resp B/P (MAP) Pulse Ox O2 Delivery O2 Flow Rate FiO2 11/10/24 13:45 36.7 75 11/10/24 12:47 17 147/89 (108) 97 11/10/24 08:00 Room Air* 0 21 laboratory and microbiology Laboratory Tests 11/09/24 06:12 11/08/24 10:45 Test 11/09/24 06:12 Range/Units Serum Glucose 101 74-106 mg/dL Problem List Chest pain. Hypertensive urgency. Assessment/Plan Continued all current supportive medical care. Aspirin, Lipitor. Losartan. Morphine for pain management. Additional plan as per the hospital course. Plan discussed with: Patient PATI PARSONS MD Nov 10, 2024 16:20
== END 2024-11-10 14:25 | disposition home or self-care (01) | DRG 303 ==
LOC: ER 10:27 → EDBD 10:27 → TELE 19:18 → TELE-WESTW 11-09 21:27
PROVIDERS: ADMIT Nurse Practitioner; ATTEND Internal Medicine
DX: I25.10 Atherosclerotic heart disease of native coronary artery without angina pectoris (principal); I16.0 Hypertensive urgency; I25.9 Chronic ischemic heart disease, unspecified; E66.9 Obesity, unspecified; E78.5 Hyperlipidemia, unspecified; G47.33 Obstructive sleep apnea (adult) (pediatric); Z79.899 Other long term (current) drug therapy; I25.2 Old myocardial infarction; Z86.73 Personal history of transient ischemic attack (TIA), and cerebral infarction without residual deficits; Z87.442 Personal history of urinary calculi; Z83.3 Family history of diabetes mellitus; Z82.49 Family history of ischemic heart disease and other diseases of the circulatory system; Z68.33 Body mass index [BMI] 33.0-33.9, adult
CPT/HCPCS: 36415; 71045; 80048; 80053; 80061; 81001; 83735; 84484; 85025; 85610; 85730; 93005; 93017; 93306; 94660; 99291; G0378; J0153; J2405